=== PATIENT | female | born 1960 | race Caucasian/White ===

== ENCOUNTER → 2016-09-22 | Day surgery (SDC) | payer OTHER ==
[~2016-09-22] MED LIST: BUPIVACAINE HCL PF 0.5% 30 ML VIAL ONE; BUPIVACAINE HCL PF 0.75% 30 ML VIAL ONE; LACTATED RINGER'S 1000 ML INJ 1,000 ML ONE; LIDOCAINE 1.5%/EPINEPHrine 1:200,000 PF SOLN 30 ML AMP ONE; TRIAMCINOLONE ACETONIDE 40 MG/ML VIAL ONE; ceFAZolin 2 GM PREMIX 50 ML ONE
--- NOTE | 2016-09-27 10:00 | MP ---
cc: PATRICIA SORIA DATE OF SURGERY: 09/22/2016. PREOPERATIVE DIAGNOSIS: 1. Left foot plantar fasciitis. 2. Left foot hallux abductovalgus. POSTOPERATIVE DIAGNOSIS: 1. Left foot plantar fasciitis. 2. Left foot hallux abductovalgus. OPERATION: 1. Endoscopic plantar fasciotomy. 2. Left foot Chas bunionectomy. SURGEON: Patricia Soria DPM. [employer] SEPARATOR OPERATOR: None. PATHOLOGY SENT: None. ANESTHESIA: General. TOURNIQUET TIME: Pneumatic ankle tourniquet at 250 mmHg. ESTIMATED BLOOD LOSS: Less than 5 mL. MATERIALS USED Arthrex cannulated screw, 3-0 Monocryl, 3-0 Prolene. INJECTABLES 10 cc of 0.5% Marcaine plain. popliteal and sciatic block. ESTIMATED BLOOD LOSS: Less than 10 mL. COMPLICATIONS: None. INDICATIONS FOR THE PROCEDURE: Ms. Phillips is a patient well-known to me who has exhausted all conservative efforts for chronic plantar fasciitis as well as painful bunion on the left foot. She has elected for surgical intervention at this time. Consent was signed. The procedure was explained. No guarantees were given. The patient is aware of postoperative non-weightbearing and is prepared for this. DESCRIPTION OF THE PROCEDURE IN DETAIL: Under mild sedation, the patient was brought into the operating room and placed on the operating table in a supine position following mild sedation. A pneumatic ankle tourniquet was placed onto the left ankle. The foot was then scrubbed, prepped and draped in the usual aseptic manner. Attention was directed to the medial aspect of the heel just distal to the calcaneal tuberosity at glomerular junction. A small 45-degree angled linear incision was created and deepened through skin and subcutaneous tissue, a hemostat was used to identify and retract any vital neurovascular structures. Then using a blunt hemostat which was then to palpate the dorsal and plantar aspect of the plantar fascia. A slotted cannula and trocar was then inserted plantar to the plantar fascia and advanced laterally. Once the skin was tenting over the lateral aspect of the foot, a second incision was created to allow the cannula and the trocar to fully extend. The trocar was then removed and several sterile Q-Tips were used to remove any blood or fat from the slotted cannula. An arthroscopic camera was inserted from the medial aspect and a blunt probe was inserted in the lateral aspect to feel for the identifiable medial and intermediate bands of the plantar fascia. The digits were retracted in a dorsiflexory position for maximal tension on the plantar fascia and a triangular blade was used to severe the medial and plantar fascial bands. There was a prompt herniation of muscle belly through the fascia and then noted release of the fascia. The camera as well as the probe were then removed. The trocar was reinserted. The cannula of was turned 180 degrees plantarly. The trocar was removed. The camera was reinserted and the plantar aspect was visualized in order to ensure that all fibers had been severed and they had. The camera was then removed and the area was flushed with copious amounts of sterile saline through the slotted cannula. The cannula was then removed and 3-0 Prolene was used to close both the medial and the lateral heel incision. Attention was then directed to the dorsal aspect of the first metatarsophalangeal joint line where an obvious bunionectomy deformity was noted. A linear longitudinal incision was created through the skin and deepened through skin and subcutaneous tissue with care being taken to identify and retract any vital neurovascular structures. Once the incision was deepened to the level of the joint, an oscillating saw was used to remove the medial hypertrophic eminence of the first metatarsal head. Attention was then directed to the first interspace where a small stab incision was created at a 45 degree angle in the metatarsophalangeal joint capsule. A hemostat was then used to clamp the insertion point of the adductor tendon and a J-stroke maneuver was used to release the abductor tendon from its insertion point. A small portion of the tendon was severed and removed from the field. The hallux was put through a range of motion and noted not to the backing any longer. A scalpel was then used to sever the fibular collateral ligament as well, which was checked using a Stuyvesant elevator. There was some sclerosis of the sesamoid so motion was minimal but it was clearly detached from the metatarsal. The patient's hip was abducted and rotated to allow for the medial aspect of the metatarsal to be facing dorsally. At this time, a 45 degree angle Chevron bunionectomy style osteotomy was created using an oscillating saw and osteotome. The leg was then placed back into its neutral position. The capital fragment was shifted to the lateral aspect to allow for reduction of the IM angle. A temporary K-wire was inserted from dorsal distal to plantar proximal and checked under fluoroscopy. It was noted to be in excellent position allowing for reduction of the first IM angle and of the bunion deformity. A cannulated 3-0 screw was then countersunk and inserted. Excellent compression was noted through the osteotomy site and again alignment was confirmed under fluoroscopy. The residual shelf of bone on the medial aspect was removed using an oscillating saw and the area was flushed with copious amounts of sterile saline. Deep and subcutaneous tissues were closed using a 3-0 Monocryl and skin was closed using 3-0 Prolene. 10 mL of 0.5% Marcaine plain were injected around all three incision sites. 1 cc of dexamethasone was injected into the plantar aspect where the fascia had been severed. The pneumatic ankle tourniquet was released and there was a prompt hyperemic response to all digits of the left foot. Sterile dressings of Adaptic, 4x4s and a well-padded posterior splint were applied. The patient tolerated the procedure and anesthesia well. She will recover in the post-anesthesia care unit for a period of time before being discharged home with written and oral postoperative instructions. Patricia CARREON/REYES /5:11 PM /9:56 AM
== END | disposition home or self-care (01) ==
LOC: ESDC 08:03
PROVIDERS: ATTEND Podiatrist Foot & Ankle Surgery
DX: M72.2 Plantar fascial fibromatosis (principal); M20.12 Hallux valgus (acquired), left foot
CPT/HCPCS: 01464; 01480; 28296; 29893; 64450; 73630; 76000; C1713; J0690; J3301; J7120